=== PATIENT | male | born 1930 | race Caucasian/White ===

== ENCOUNTER → 2018-05-08 | Outpatient (CLI) | payer MEDICARE ==
[~2018-05-08] MED LIST: AMLO5TAB4 PO; ASPI-515 PO; ATOR20TA37 PO; CALC1TAB91 PO; CHOL5000 PO; FISH1CAP PO; FLAX1CAP PO; FOLI0.4T2 PO; HYDR-3237 PO; INSU100C5 SQ-INSULIN; INSU100V8 SQ; LEVO100T5 PO; LISI-170 PO; METF850T10 PO; MULT-658 PO; NIAC500T4 PO; UBID300C PO; VITA400C43 PO; Will bring list DOS; [UNRECOGNIZED DRUG - OTHER] PO
== END | disposition home or self-care (01) ==
LOC: RAD 20:29
PROVIDERS: ATTEND Family Medicine
DX: R05 Cough (principal)
CPT/HCPCS: 71046

== ENCOUNTER 2019-06-04 11:18 | Day surgery (SDC) | payer MEDICARE ==
[~2019-06-04] VITALS: Ht 182.9 cm; Wt 93.0 kg
[2019-06-04 11:38] VITALS: BP 135/73
[2019-06-04] MEDS ORDERED: LACTATED RINGERS 1,000 ML IV SCH (11:42)
[2019-06-04] MEDS ORDERED: EPHEDRINE 50 MG/ML, 1ML ONE (13:03)
[2019-06-04] MEDS ORDERED: PROPOFOL 10 MG/ML, 20ML ONE (13:03)
[2019-06-04] MEDS ORDERED: MIDAZOLAM 1 MG/ML, 2ML ONE (13:21)
== END 2019-06-04 15:40 | disposition home or self-care (01) ==
LOC: OUT 11:18
PROVIDERS: ATTEND Internal Medicine
DX: K59.00 Constipation, unspecified (principal); D12.4 Benign neoplasm of descending colon; D12.2 Benign neoplasm of ascending colon; K29.50 Unspecified chronic gastritis without bleeding; E11.9 Type 2 diabetes mellitus without complications; F41.9 Anxiety disorder, unspecified; I10 Essential (primary) hypertension; I25.2 Old myocardial infarction; F15.90 Other stimulant use, unspecified, uncomplicated; Z95.0 Presence of cardiac pacemaker; Z95.1 Presence of aortocoronary bypass graft; Z87.891 Personal history of nicotine dependence; Z79.899 Other long term (current) drug therapy; Z79.84 Long term (current) use of oral hypoglycemic drugs
CPT/HCPCS: 43239; 45380; 45385; 82962; 88305; 93005; J2250; J2704; J7120

== ENCOUNTER 2019-07-20 13:54 | Outpatient (CLI) | payer MEDICARE ==
[~2019-07-20 13:54] MED LIST changes: +NIAC-17 PO; -NIAC500T4 PO
== END 2019-07-20 23:59 | disposition home or self-care (01) ==
LOC: CVU 13:54
PROVIDERS: ATTEND Internal Medicine Cardiovascular Disease
DX: I08.0 Rheumatic disorders of both mitral and aortic valves (principal); I10 Essential (primary) hypertension; I25.10 Atherosclerotic heart disease of native coronary artery without angina pectoris
CPT/HCPCS: 93306; 93356

== ENCOUNTER 2020-02-15 10:20 | Day surgery (SDC) | payer MEDICARE ==
[~2020-02-15] VITALS: Ht 182.9 cm; Wt 93.0 kg
[2020-02-15 11:17] VITALS: BP 132/73
[2020-02-15 11:29] LABS: BASOPHILS % (AUTO) 1 % (0-1); EOSINOPHILS % (AUTO) 2 % (1-7); LYMPHOCYTES % (AUTO) 21 % (22-44); MEAN CORPUSCULAR HEMOGLOBIN 31.6 pg (27.5-34.5); MEAN CORPUSCULAR HGB CONC 32.9 g/dL (33.2-36.2); MEAN PLATELET VOLUME 9.6 fL (7.4-10.4); MONOCYTES % (AUTO) 9 % (2-9); NEUTROPHILS % (AUTO) 68 % (42-75); PLATELET COUNT 162 x10^3/uL (130-400); RED BLOOD COUNT 3.93 x10^6/uL (4.38-5.82); RED CELL DISTRIBUTION WIDTH 14.8 % (9.4-14.8)
[2020-02-15 11:34] LABS: ANION GAP 3 mmol/L (5-15); CALCIUM 10.1 mg/dL (8.5-10.1); CHLORIDE 107 mmol/L (98-107)
[2020-02-15] MEDS ORDERED: POLY1530 PO (11:54)
[2020-02-15] MEDS ORDERED: FERR324T5 PO (11:54)
[2020-02-15] MEDS ORDERED: TAMS-11 PO (11:54)
[2020-02-15] MEDS ORDERED: CYAN1TAB29 PO (11:54)
[2020-02-15] MEDS ORDERED: FINA5TAB4 PO (11:54)
[2020-02-15] MEDS ORDERED: BACI1TAB8 PO (11:54)
[2020-02-15] MEDS ORDERED: SENN8.6T98 PO (11:54)
[2020-02-15] MEDS ORDERED: PSYL0.5215 PO (11:54)
[2020-02-15] MEDS ORDERED: DOCU100C33 PO (11:54)
[2020-02-15] MEDS ORDERED: CARV12.5 PO (11:54)
[2020-02-15] MEDS ORDERED: 5-HY50CA PO (11:54)
[2020-02-15] MEDS ORDERED: APIX5TAB PO (11:54)
[2020-02-15 11:58] LABS: MD NO
[2020-02-15] MEDS ORDERED: PROPOFOL 10 MG/ML, 20ML ONE (12:27)
== END 2020-02-15 14:02 | disposition home or self-care (01) ==
LOC: CACL 10:20
PROVIDERS: ATTEND Internal Medicine Cardiovascular Disease
DX: I48.91 Unspecified atrial fibrillation (principal); I10 Essential (primary) hypertension; I25.10 Atherosclerotic heart disease of native coronary artery without angina pectoris; E78.5 Hyperlipidemia, unspecified; F41.9 Anxiety disorder, unspecified; F32.9 Major depressive disorder, single episode, unspecified; E11.40 Type 2 diabetes mellitus with diabetic neuropathy, unspecified; E03.9 Hypothyroidism, unspecified; I42.9 Cardiomyopathy, unspecified; Z95.1 Presence of aortocoronary bypass graft; Z95.0 Presence of cardiac pacemaker; Z87.891 Personal history of nicotine dependence; Z79.82 Long term (current) use of aspirin; Z79.01 Long term (current) use of anticoagulants; Z79.4 Long term (current) use of insulin; Z79.899 Other long term (current) drug therapy; Z98.890 Other specified postprocedural states; Z88.0 Allergy status to penicillin; Z72.89 Other problems related to lifestyle
CPT/HCPCS: 36415; 80048; 85025; 92960; 93005; J2704

== ENCOUNTER → 2020-02-27 | Outpatient (CLI) | payer MEDICARE ==
[~2020-02-27] MED LIST changes: +5-HY50CA PO; +APIX5TAB PO; +BACI1TAB8 PO; +CARV12.5 PO; +CYAN1TAB29 PO; +DOCU100C33 PO; +FERR324T5 PO; +FINA5TAB4 PO; +POLY1530 PO; +PSYL0.5215 PO; +SENN8.6T98 PO; +TAMS-11 PO
== END | disposition home or self-care (01) ==
LOC: CFH 08:50
PROVIDERS: ATTEND Internal Medicine Cardiovascular Disease
DX: I25.9 Chronic ischemic heart disease, unspecified (principal); I27.20 Pulmonary hypertension, unspecified; R06.02 Shortness of breath; I42.9 Cardiomyopathy, unspecified
CPT/HCPCS: 78452; 93017; A9502

== ENCOUNTER 2020-11-17 07:01 | Day surgery (SDC) | payer MEDICARE ==
[~2020-11-17] VITALS: Ht 182.9 cm; Wt 93.2 kg
[~2020-11-17 07:01] MED LIST changes: -ASPI-515 PO; +ASPI-963 PO; -FOLI0.4T2 PO; +FOLI0.4T5 PO
[2020-11-17] MEDS ORDERED: SODIUM CHLORIDE 0.9% 500 ML IV PRN (08:00)
[2020-11-17] MEDS ORDERED: SERT50TA28 PO (08:01)
[2020-11-17] MEDS ORDERED: FLAX10004 PO (08:02)
[2020-11-17 08:03] VITALS: BP 123/70
[2020-11-17 08:06] LABS: ANION GAP 4 mmol/L (5-15); CALCIUM 9.7 mg/dL (8.5-10.1); CHLORIDE 109 mmol/L (98-107); CREATININE 0.95 mg/dL (0.7-1.3)
[2020-11-17] MEDS ORDERED: PROPOFOL 10 MG/ML, 20ML ONE (13:24)
== END 2020-11-17 09:48 | disposition home or self-care (01) ==
LOC: CACL 07:01
PROVIDERS: ATTEND Internal Medicine Cardiovascular Disease
DX: I48.91 Unspecified atrial fibrillation (principal); I25.10 Atherosclerotic heart disease of native coronary artery without angina pectoris; I11.0 Hypertensive heart disease with heart failure; I50.20 Unspecified systolic (congestive) heart failure; I42.9 Cardiomyopathy, unspecified; I27.20 Pulmonary hypertension, unspecified; E78.5 Hyperlipidemia, unspecified; E03.9 Hypothyroidism, unspecified; F32.9 Major depressive disorder, single episode, unspecified; F41.9 Anxiety disorder, unspecified; E11.40 Type 2 diabetes mellitus with diabetic neuropathy, unspecified; E66.3 Overweight; Z68.29 Body mass index [BMI] 29.0-29.9, adult; Z79.4 Long term (current) use of insulin; Z79.82 Long term (current) use of aspirin; Z79.890 Hormone replacement therapy; Z79.899 Other long term (current) drug therapy; Z87.891 Personal history of nicotine dependence; Z88.0 Allergy status to penicillin; Z95.0 Presence of cardiac pacemaker; Z95.1 Presence of aortocoronary bypass graft; Z98.890 Other specified postprocedural states
CPT/HCPCS: 36415; 80048; 92960; J2704

== ENCOUNTER 2021-01-05 09:47 | Day surgery (SDC) | payer MEDICARE ==
[~2021-01-05] VITALS: Ht 182.9 cm; Wt 93.1 kg
[~2021-01-05 09:47] MED LIST changes: +FLAX10004 PO; +PROPOFOL 10 MG/ML, 20ML ONE; +SERT50TA28 PO
[2021-01-05] MEDS ORDERED: ALPR0.254 PO (10:19)
[2021-01-05] MEDS ORDERED: FINA5TAB4 PO (10:19)
[2021-01-05] MEDS ORDERED: AMIO200T42 PO (10:19)
[2021-01-05] MEDS ORDERED: SENN8.6T98 PO (10:23)
[2021-01-05] MEDS ORDERED: 5-HY50CA PO (10:24)
[2021-01-05 10:34] VITALS: BP 140/81
[2021-01-05 10:50] LABS: ANION GAP 8 mmol/L (5-15); CALCIUM 9.3 mg/dL (8.5-10.1); CHLORIDE 103 mmol/L (98-107); CREATININE 1.01 mg/dL (0.7-1.3)
== END 2021-01-05 14:44 | disposition home or self-care (01) ==
LOC: CACL 09:47
PROVIDERS: ATTEND Internal Medicine Cardiovascular Disease
DX: I48.91 Unspecified atrial fibrillation (principal); I25.10 Atherosclerotic heart disease of native coronary artery without angina pectoris; E11.40 Type 2 diabetes mellitus with diabetic neuropathy, unspecified; E78.5 Hyperlipidemia, unspecified; E03.9 Hypothyroidism, unspecified; F32.9 Major depressive disorder, single episode, unspecified; F41.9 Anxiety disorder, unspecified; I42.9 Cardiomyopathy, unspecified; I27.20 Pulmonary hypertension, unspecified; E66.3 Overweight; Z68.29 Body mass index [BMI] 29.0-29.9, adult; Z79.4 Long term (current) use of insulin; Z79.01 Long term (current) use of anticoagulants; Z79.890 Hormone replacement therapy; Z79.899 Other long term (current) drug therapy; Z88.0 Allergy status to penicillin; Z95.0 Presence of cardiac pacemaker
CPT/HCPCS: 36415; 80048; 92960; 93005; J2704

== ENCOUNTER 2021-01-14 12:14 | Outpatient (CLI) | payer MEDICARE ==
[~2021-01-14 12:14] MED LIST changes: +ALPR0.254 PO; +AMIO200T42 PO; -PROPOFOL 10 MG/ML, 20ML ONE
[2021-01-14] MEDS ORDERED: REGADENOSON 0.4 MG/5 ML SYRINGE ONE (15:00)
== END 2021-01-14 23:59 | disposition home or self-care (01) ==
LOC: CFH 12:14
PROVIDERS: ATTEND Physician Assistant Medical
DX: I42.9 Cardiomyopathy, unspecified (principal); R06.02 Shortness of breath
CPT/HCPCS: 78452; 93017; A9502; J2785